=== PATIENT | female | born 1985 | race Two or more races ===

== ENCOUNTER 2016-10-13 05:34 | Observation (INO) | payer BC, SELFPAY ==
[~2016-10-13] VITALS: Ht 160 cm; Wt 99.5 kg
--- NOTE | 2016-10-16 12:49 | HP ---
ADMIT: 10/13/2016 RM/LOC: 518 [facility] MR#: [id number] [address] [place], [place] [address] JONASLAYNE [address] [place] [address] History and Physical SEX: F AGE: 31 : 1985 DATE OF SERVICE: CHIEF COMPLAINT AND HISTORY OF PRESENT ILLNESS: This 31-year-old female presented to the emergency room with complaint of pain in the left leg which had been occurring over the last week and a half but had become more severe. She has also had some dyspnea with exertion. Over the last few days, she has had no cough. She was found to have deep vein thrombophlebitis as well as pulmonary emboli. The patient has no previous history of pulmonary emboli. There has been no recent trauma. There has been no hemoptysis. PREVIOUS MEDICAL HISTORY: Generally, her health has been good. MEDICATIONS: Include her only medicine for pain in the legs. ALLERGIES: NONE. SOCIAL HISTORY: The patient is not a smoker. She has had no history of deep vein thrombophlebitis. No trauma to the leg. FAMILY HISTORY: No one in the family has had blood clots or pulmonary emboli. REVIEW OF SYSTEMS: HEENT: There has been no headaches or sinus problems. CARDIORESPIRATORY: No history of hypertension. She has some right-sided chest discomfort. Denies any dyspnea. No heart disease, syncope, or myocardial infarctions. GASTROINTESTINAL: No nausea, vomiting, constipation, bloody stools, or diarrhea. She has had history of some anemia in the past. She also has had occasional right upper quadrant pain. METABOLIC/ENDOCRINE: The patient has history of gestational diabetes but is taking no medications for it. MUSCULOSKELETAL: No history of systemic arthritis. PHYSICAL EXAMINATION: VITAL SIGNS: Blood pressure is 152/90, heart rate is 95 and regular, temperature 97.7. GENERAL: The patient is alert, awake, and oriented x3. The patient does have obesity. HEENT: Head normocephalic without exostoses. HORTENSIA. Throat within normal limits. NECK: Neck veins not distended. Thyroid not enlarged. CHEST: Clear to percussion and auscultation. HEART: Regular rhythm with no murmur heard. No clinical evidence of cardiomegaly. ABDOMEN: Soft, nontender. Liver is not enlarged. Spleen is not palpable. No abnormal masses are palpated. Femoral pulses are strong and equal bilaterally. ADMIT: 10/13/2016 RM/LOC: 518 [facility] MR#: [id number] [address] [address] LAYNE MCDANIEL [address] [place] [address] History and Physical SEX: F AGE: 31 : 1985 GENITALIA: Deferred. EXTREMITIES: The patient has tenderness behind knee and down the right posterior leg. ASSESSMENT: 1. Right deep vein thrombophlebitis. 2. Acute pulmonary emboli. 3. Obesity. 4. Marked anemia. PLAN: Consult Hematology regarding a coagulation disorder and to address anemia. Ta Santos MD/ akash JOB #: [id number] CC: Ta Santos, Attending Physician Ta Santos, Family Physician
[2016-10-16] MEDS ORDERED: TYLENOL DPS325 MG PO (17:04)
[2016-10-16] MEDS ORDERED: LOVENOX DP100 MG/1 M SQ (17:04)
[2016-10-16] MEDS ORDERED: COUMADIN5 MG PO (17:04)
[2016-10-16] MEDS ORDERED: FEOSOL-DPS325 MG PO (17:04)
--- NOTE | 2016-10-20 09:52 | CO ---
ADMIT: 10/13/2016 RM/LOC: 518 [facility] MR#: [id number] [address] [place], [place] [address] LAYNE MCDANIEL [address] [place] [address] Consultation SEX: F AGE: 31 : 1985 DATE OF CONSULTATION: 10/13/2016 ATTENDING PHYSICIAN: Ta Santos MD CONSULTING PHYSICIAN: Ayan Gautam MD REASON FOR ONCOLOGY CONSULTATION: Acute DVT and PE, new onset. HISTORY OF PRESENT ILLNESS: Mrs. Sexton is a 31-year-old, young female, the history was taken using the family educator, was admitted due to the shortness of breath and the pain in the right leg, on the ultrasound of the right leg due to the pain and swelling. The finding was nonocclusive right leg DVT then she underwent to have a CTA of the chest on October 13, 2010, and the finding was bilateral pulmonary emboli. She was started on heparin drip. As per the patient, she is not a smoker. She is little obese, but does not have any kind of risk factor to have a blood clot, so it looks like it is unprovoked blood clot. Therefore, Hematology was consulted for further management of her anticoagulation and to rule out if there are any hypercoagulable state. She denies any family history of having blood clots. Denies any shortness of breath at the time when I saw her. She does complain of some chest pain initially, but is getting better now. No fever, no nausea, no vomiting, no diarrhea. PAST MEDICAL HISTORY: None. MEDICATIONS: None. ALLERGIES: NONE. SOCIAL HISTORY: She is not a smoker. Not a drinker. No IV illicit drug use. She is a house . Lives at home. FAMILY HISTORY: No family had blood clot. There are some heart disease and high blood pressure in the family. REVIEW OF SYSTEMS: GENERAL: Not in acute distress. Her shortness of breath and pain got significantly better today. RESPIRATORY: No shortness of breath. CARDIOVASCULAR: No chest pain. ABDOMEN: No nausea, no vomiting, no diarrhea. GENITOURINARY: No urgency, no frequency. ENDOCRINOLOGY: No polyuria, no polydipsia. SKIN: No rash. INFECTION: No fever. NUTRITION: Adequate. EXTREMITIES: No swelling. PHYSICAL EXAMINATION: VITAL SIGNS: Temperature 98.4, pulse 78, respirations 16, and blood pressure 158/92. ADMIT: 10/13/2016 RM/LOC: 518 [facility] MR#: [id number] [address] [address] LAYNE MCDANIEL [address] [place] [address] Consultation SEX: F AGE: 31 : 1985 HEENT: Normocephalic and atraumatic. LUNGS: Clear. HEART: S1 and S2 heard. Regular rate and rhythm. ABDOMEN: Soft, nontender, and nondistended. Positive bowel sounds. EXTREMITIES: No edema. NEUROLOGIC: Awake, alert, and oriented x3. LYMPHATICS: No abnormal lymph nodes palpated. SKIN: No rashes. LABORATORY DATA: WBC 8.3, hemoglobin 8.2, and platelet is 216. Her MCV is 73.2. Normal kidney and normal LFTs. Her ferritin was 3 with iron 20. CTA of the chest and ultrasound of the leg findings noted. IMPRESSION AND RECOMMENDATIONS: 1. Acute deep venous thrombosis and pulmonary embolism, unprovoked. The patient is young, therefore, hypercoagulable state needs to be worked up. She is on heparin drip. We can continue warfarin from tomorrow or we can change to Lovenox instead of heparin and probably send the patient home if her insurance pays for Lovenox. I would like her to be on Coumadin in the future at least for six months. She will also need a target INR of 2. If she goes home, then she needs a Lovenox shot to breeze the therapy for at least 5 days of treatment. We will also order a hypercoagulable workup and those tests will need at least two weeks for result to come and I will see the patient probably in the clinic to discuss the result. 2. Microcytic anemia with a ferritin of 3, severe iron deficiency. The patient denies any bleeding. Denies any other problems. At this point of time, I will give her Feraheme one dose and also start oral iron and we will follow up her very closely as an outpatient upon discharge. If she continuously become low in iron, then probably we will need a ADMIT: 10/13/2016 RM/LOC: 518 [facility] MR#: [id number] [address] [address] LAYNE MCDANIEL [address] [place] [address] Consultation SEX: F AGE: 31 : 1985 colonoscopy to evaluate the cause, but at this point of time, it just could be the over bleeding from the menstruations. I have reviewed all the medical records. I have spent total of 80 minutes of my time. More than 50% of my time was spent in discussing with the patient about the PE and DVT in this management in the future as well as iron-deficiency anemia and the need of iron. She understood all very clearly and the workup that she needs to be done. She also understood very clearly and more than 50% of my time was spent discussing with her about these issues. Thank you for your consultation and opportunity in taking care of your patient and I will follow the patient with you. Ayan Gautam MD/ akash JOB #: [id number] CC: Ta Santos MD, Attending Physician Ta Santos MD, Family Physician
--- NOTE | 2016-10-24 10:00 | ER ---
ADMIT: 10/13/2016 RM/LOC: 518 [facility] MR#: [id number] [address] [facility] [address] [address] [place], [place] [address] LEILALAYNE WIGGINS [address] [place] [address] Emergency Room Report SEX: F AGE: 31 : 1985 DATE: 10/13/2016 ADDENDUM: This 31-year-old, white female coming in with bilateral PEs, heparin protocol was started. She had vague intermittent chest pain, she had a clot in her right leg. So we went ahead and did the CTA which showed PE. She will be admitted. Labs will admit. CONDITION ON ADMISSION: Serious but stable. Luis Rowell MD/ akash JOB #: [id number] CC: Ta Santos MD, Attending Physician Ta Santos MD, Family Physician
--- NOTE | 2016-11-01 11:23 | DS ---
ADMIT: 10/13/2016 RM/LOC: 518 [facility] MR#: [id number] [facility]#: [id number] [address] [address] MOISÉSLAYNE DIXON [address] [place] [address] Discharge Summary SEX: F AGE: 31 : 1985 ADMISSION DATE: 10/13/2016 DISCHARGE DATE: 10/15/2016 HISTORY AND PHYSICAL: Please see the chart. LABORATORY AND X-RAY DATA: Please see the chart. CLINICAL COURSE: This 31-year-old female was admitted for deep vein thrombophlebitis and pulmonary emboli. The patient initially was seen in the emergency room complaining of dyspnea and leg pain. Deep vein thrombophlebitis was found as well as pulmonary emboli. A CT scan was ordered. Her metformin was discontinued and the concern I have is at this early age she has had pulmonary emboli and therefore Dr. Gautam was consulted for a coagulation workup. The patient was placed on a sliding scale of insulin. A number tests were ordered including protein-S, protein-C, beta 2 glycoprotein, Factor V Leiden, antithrombin III level, Factor VIII level, fibrin level and further tests. The patient was placed on intravenous heparin. Her heart rhythm was stable. She was changed to Lovenox and Coumadin. Stool for occult blood was ordered because of her hemoglobin of 8.2. She was placed on Coumadin. The patient did well. Her leg pain subsided. She was to be followed up by the quality control engineering technician. She was arranged to take Lovenox as an outpatient and continue a Coumadin protocol. He was also given ferrous sulfate. FINAL DIAGNOSES: 1. Deep vein thrombophlebitis. 2. Pulmonary emboli. 3. Anemia. 4. Type 2 diabetes mellitus. 5. Bilateral pulmonary emboli. Ta Santos MD/ akanksha JOB #: [id number] CC: Ta Santos MD, Attending Physician Ta Santos MD, Family Physician
== END 2016-10-15 16:50 | disposition home or self-care (01) ==
LOC: ER 05:34 → 5MS 09:20
DX: I80.9 Phlebitis and thrombophlebitis of unspecified site (principal); I26.99 Other pulmonary embolism without acute cor pulmonale; E11.9 Type 2 diabetes mellitus without complications; D64.9 Anemia, unspecified; E66.9 Obesity, unspecified; Z79.899 Other long term (current) drug therapy